=== PATIENT | female | born 1965 | race Caucasian/White ===

== ENCOUNTER 2020-03-23 00:19 | Observation (INO) | payer SELFPAY ==
[~2020-03-23] VITALS: Ht 157.5 cm; Wt 58.2 kg
--- NOTE | ~2020-03-23 | HEMODYNAMI ---
PATIENT:ELIZABETH DRUMMOND MEDICAL RECORD: [id number] : 67 LOCATION[facility] [facility] [id number] ADMISSION DATE: 03/23/20 Generatedon:03/23/20209:55 Patient name: ELIZABETH DRUMMOND Patient #: [id number] SSN: DO B: 1965 Date of study: 03/23/2020 Page: Of Hemodynamic Procedure Report Patient Data Patient Demographics Procedure consent was obtained First Name: ELIZABETH Gender: Female Last Name: HODA : 1965 Patient #: [id number] Age: 54 year(s) Race: Unknown Additional ID: [id number] Contact details Address: [address] [place] [address] State: [place] City: [facility] Zip code: [address] Admission Admission Data Admission Date: 03/23/2020 Admission Time: 1:50 Room #: D.2121 Lab Results Lab Result Date: 03/23/2020 Lab Result Time: 0:00 Biochemistry Name Units Result Min Max BUN mg/dl 17 --(---*)-- 7 18 Creatinine mg/dl 1 --(--*-)-- 0.6 1.3 CBC Name Units Result Min Max Hemoglobin g/dl 13.2 -*(----)-- 13.5 17.5 Procedure Procedure Types Cath Procedure Diagnostic Procedure [facility] w/Coronaries Sedation Charges Moderate Sedation up to 15 minutes PCI Procedure Coronary Stent Coronary Stent Initial Hemochron ACT Test Procedure Description Procedure Date Procedure Date: 03/23/2020 Procedure Start Time: 9:34 Procedure End Time: 9:49 Procedure Staff Name Function Stephon Quintanilla MD Performing Physician Amelia Randolph RT Scrub Marlene Driscoll RT Monitor Vipul Zapien RN Nurse Procedure Data Cath Procedure Fluoroscopy Diagnostic fluoroscopy Total fluoroscopy Time: 2.3 time: 2.3 min min Diagnostic fluoroscopy Total fluoroscopy dose: 208 dose: 208 mGy mGy Contrast Material Contrast Material Type Amount (ml) Isovue 300 73 Entry Location Entry Primary Successful Side Size Upsize Upsize Entry Closure Succes sful Closure Location (Fr) 1 (Fr) 2 (Fr) Remarks Device Remarks Femoral Right 5 Fr 6 Fr Exoseal artery Short Estimated blood loss: 5 ml Diagnostic catheters Device Type Used For End Catheter Placement MULTIPACK JL 4.0 5Fr Left Coronary catheter Angiography MULTIPACK 3DRC 5Fr Right Coronary catheter Angiography MULTIPACK Pigtail 5 Fr LV Angiography catheter Procedure Complications No complications Procedure Medications Medication Administration Route Dosage Oxygen etCO2 Nasal cannula 2 l/min Heparin Flush Bag added to field 2 bags (1000units/500ml NS) Lidocaine 2% added to field 20 0.9% NaCl I.V. 100 ml/hr Benadryl I.V. 50 mg Fentanyl I.V. 50 mcg Versed I.V. 1 mg Fentanyl I.V. 50 mcg Versed I.V. 1 mg Heparin Bolus I.V. 4000 units Integrilin (Bolus I.V. 5 ml 2mg/ml) Integrilin (Bolus wasted 5 ml 2mg/ml) Plavix P.O. 600 mg Hemodynamics Rest HGB: 13.2 (g/dl) Heart Rate: 61 (bpm) Pressure Samples Time Site Value (mmHg) Purpose Heart Use Rate(bpm) 9:37 LV 115/0,1 Snapshot 64 Gradients Valve Time Site Site Mean SEP/DFP Peak To Heart Use 1 2 (mmHg) (sec/min) Peak Rate (mmHg) (bpm) Aortic 9:38 LV AO 76 Snapshots Pre Cath Intra NCS Post Cath Vital Signs Time Heart Resp SPO2 etCO2 NIBP (mmHg) Rhythm Pain Sedation Rate (ipm) (%) (mmHg) Status Level (bpm) 9:23:21 61 16 100 21.8 127/78(108) NSR 0 (11) 10(A) , No pain 9:27:35 61 16 100 8.2 126/81(92) NSR 0 (11) 10(A) , No pain 9:31:47 67 16 100 15.8 111/73(88) NSR 0 (11) 9(A) , No pain 9:35:59 75 17 99 31.6 101/69(81) NSR 0 (11) 9(A) , No pain 9:40:03 73 16 99 32.4 110/76(91) NSR 0 (11) 9(A) , No pain 9:44:11 82 16 99 33.1 107/80(87) NSR 0 (11) 9(A) , No pain 9:48:22 73 16 100 32.4 102/58(86) NSR 0 (11) 9(A) , No pain Medications Time Medication Route Dose Verified Delivered Reason Notes Effectiveness by by 9:23:00 Oxygen etCO2 2 Stephon Clarkey Per physician Nasal l/min St Ruddy Zapien RN cannula 9:23:10 Heparin Flush added 2 Stephon Vipul used for Bag to bags St Ruddy Zapien RN procedure (1000units/500ml field VASQUEZ NS) 9:23:35 Lidocaine 2% added 20ml Stephon Matthew for local to vial St Ruddy Zapien RN anesthetic field VASQUEZ 9:23:44 0.9% NaCl I.V. 100 Stephon Clarkey Per physician ml/hr St Ruddy Zapien RN, MD 9:23:56 Benadryl I.V. 50 mg Stephon Matthew Per physician St Ruddy Zapien RN, MD 9:26:25 Fentanyl I.V. 50 Stephon Clarkey for sedation mcg St Ruddy Zapien RN, MD 9:26:31 Versed I.V. 1 mg Stephon Matthew for sedation St Ruddy Zapien RN, MD 9:34:15 Fentanyl I.V. 50 Stephon Clarkey for sedation mcg [facility] Ruddy Zapien RN, MD 9:34:20 Versed I.V. 1 mg Stephon Matthew for sedation St Ruddy Zapien RN, MD 9:40:31 Heparin Bolus I.V. 4000 Stephon Matthew for units St Ruddy Zapien RN anticoagulation 9:40:42 Integrilin I.V. 5 ml Stephon Matthew for (Bolus 2mg/ml) St Ruddy Zapien RN anticoagulation 9:40:45 Integrilin wasted 5 ml Stephon Matthew for (Bolus 2mg/ml) St Ruddy Zapien RN anticoagulation 9:51:08 Plavix P.O. 600 Stephon Matthew for mg St Ruddy Zapien RN antiplatelet therapy Procedure Log Time Note 8:59:38 Diagnostic Cath Status : Elective 9:02:01 Procedure Status Urgent Heart Cath (IP). 9:02:03 Marlene Driscoll RT(R) sent for patient. Start room use. 9:02:10 Time tracking: Regular hours (M-F 7:00 - 5:00) 9:02:15 Plan of Care:Hemodynamics will remain stable., Cardiac rhythm will remain stable., Comfort level will be maintained., Respiratory function will remain adequate., Patient/ family verbilizes understanding of procedure., Procedure tolerated without complication., Recovers from procedure without complications.. 9:22:19 Vital chart was started 9:23:00 Oxygen 2 l/min etCO2 Nasal cannula was administered by Vipul Zapien RN; Per physician; Verbal order read back and verified. 9:23:10 Heparin Flush Bag (1000units/500ml NS) 2 bags added to field was administered by Vipul Zapien RN; used for procedure; Verbal order read back and verified. 9:23:35 Lidocaine 2% 20ml vial added to field was administered by Vipul Zapien RN; for local anesthetic; Verbal order read back and verified. 9:23:44 0.9% NaCl 100 ml/hr I.V. was administered by Vipul Zapien RN; Per physician; Verbal order read back and verified. 9:23:56 Benadryl 50 mg I.V. was administered by Vipul Zapien RN; Per physician; Verbal order read back and verified. 9:24:39 Patient received from Mapiliary II to CCL 1 Alert and oriented. Tansferred to table in Supine position. 9:24:41 Signed procedure consent form obtained from patient. 9:24:42 Warm blankets applied, and rea hugger turned on for patient comfort. 9:24:43 Baseline sample Acquired. 9:24:43 Correct patient and procedure confirmed by team. 9:24:43 ECG and BP/O2 sat monitors applied to patient. 9:24:48 Rhythm: sinus rhythm 9:24:49 Full Disclosure recording started 9:24:54 H&P Date Dictated: 03/23/2020 New H&P dictated by physician.. 9:24:56 Pre-procedure instructions explained to patient. 9:24:56 Pre-op teaching completed and patient verbalized understanding. 9:24:58 Family unavailable. 9:25:00 Patient NPO since Midnight. 9:25:06 Is the patient allergic to Iodine/contrast media? No. 9:25:06 Was the patient premedicated? Yes 9:25:08 Is patient on blood thinner?No 9:25:09 Patient diabetic? No. 9:25:12 Previous problem with sedation/anesthesia? No ? 9:25:13 Snore? Yes 9:25:15 Sleep apnea? No 9:25:16 Deviated septum? No 9:25:17 Opens mouth fully? Yes 9:25:18 Sticks out tongue? Yes 9:25:19 Airway obstruction? No ? 9:25:22 Dentures? No ? 9:25:26 Pre procedure: right dorsailis pedis pulse 1+ Palpable, but thready & weak; easily obliterated 9:25:29 Pre procedure: left dorsailis pedis pulse 1+ Palpable, but thready & weak; easily obliterated 9:25:31 Patient pain scale 0/10 ?. 9:25:42 IV patent on arrival in right wrist with 0.9% NaCl at KVO. 9:25:47 Lab results completed and on chart. 9:25:53 Stress Test: no; N/A ? 9:25:57 Right groin area was prepped with chlora-prep and draped in sterile fashion 9:25:58 Alarms reviewed by R. N. 9:25:59 Sharps counted by scrub and verified by R.N. 9:26:01 Physician arrived 9:26:01 --------ALL STOP TIME OUT------ 9:26:02 Final Timeout: patient, procedure, and site verified with staff and physician. All members of the team are in agreement. 9:26:03 Right groin site verified by team. 9:26:06 Fire Safety Assessment: A--An alcohol-based skin anteseptic being used preoperatively., C--Open oxygen or nitrous oxide is being used., D--An ESU, laser, or fiber-optic light is being used. 9:26:10 Physical assessment completed. ASA score P 2 - A patient with mild systemic disease as per Stephon Quintanilla MD. 9:26:25 Fentanyl 50 mcg I.V. was administered by Vipul Zapien RN; for sedation; Verbal order read back and verified. 9:26:31 Versed 1 mg I.V. was administered by Vipul Zapien RN; for sedation; Verbal order read back and verified. 9:27:05 2) 60-89 Mildly reduced kidney function, and other findings (as for stage 1) point to kidney disease. 9:33:04 Maximum allowable contrast dose (3.7 X eGFR X 0.75)169 ml. 9:33:08 Sedation plan: IV Moderate Sedation Medication:Versed, Fentanyl 9:33:54 Use device set Femoral Dx 9:33:55 ACIST Syringe (03181) opened to sterile field. 9:33:55 Bag Decanter (2002S) opened to sterile field. 9:33:55 Medline Cath Pack ([id number]) opened to sterile field. 9:33:56 ACIST Hand Control (51728) opened to sterile field. 9:33:57 ACIST Manifold (05034) opened to sterile field. 9:33:57 DIAGNOSTIC Multipack 5Fr catheter set (HE2938) opened to sterile field. 9:33:58 Tegaderm 4 x 4 (1626W) opened to sterile field. 9:33:58 SHEATH 5FR Aurora (DEE099) opened to sterile field. 9:33:59 EMERALD Guide Wire (766-758) opened to sterile field. 9:34:03 Procedure started. 9:34:15 Fentanyl 50 mcg I.V. was administered by Vipul Zapien RN; for sedation; Verbal order read back and verified. 9:34:19 Local anesthetic to right femoral artery with Lidocaine 2% by Stephon Quintanilla MD.INITIAL ACCESS ONLY 9:34:20 Versed 1 mg I.V. was administered by Vipul Zapien RN; for sedation; Verbal order read back and verified. 9:34:33 A 5 Fr sheath was inserted into the Right Femoral artery 9:34:40 A MULTIPACK JL 4.0 5Fr catheter was advanced over the wire and used for Left Coronary Angiography. 9:35:02 LCA angiography performed. 9:35:09 Injector settings: Ml/sec: 3, Volume: 6, 9:35:13 Catheter removed. 9:35:22 A MULTIPACK 3DRC 5Fr catheter was advanced over the wire and used for Right Coronary Angiography. 9:35:38 RCA angiography performed. 9:35:41 Injector settings: Ml/sec: 3, Volume: 6, 9:36:43 ACCDominant side:Left 9:36:47 Catheter removed. 9:36:55 A MULTIPACK Pigtail 5 Fr catheter was advanced over the wire and used for LV Angiography. 9:37:34 Lab Result : Hemoglobin 13.2 g/dl 9:37:34 Lab Result : Creatinine 1 mg/dl 9:37:34 Lab Result : BUN 17 mg/dl 9:38:06 LV hemodynamics recorded. 9:38:19 EF : 55 % 9:38:21 LV gram done using TOMLINSON 9:38:24 Injector settings: Ml/sec: 5, Volume: 15, 9:39:28 GUIDE 6FR XBLAD 3.5 catheter ([id number]) opened to sterile field. 9:39:29 INFLATOR Merit BasixCompak (OW3265) opened to sterile field. 9:39:29 SHEATH 6FR Aurora (NKO031) opened to sterile field. 9:39:36 WHISPER 300cm guide wire ([id number]) opened to sterile field. 9:39:43 Catheter removed. 9:39:45 Proceeding to intervention. 9:39:56 Sheath upsized to a 6 Fr Short. 9:39:59 ACC Pre-intervention NGUYEN Flow is 3. 9:40:09 Pre PCI Site: [place] pCirc has 90% stenosis. 9:40:16 6 Fr xblad 3.5 guide catheter was inserted over the wire 9:40:31 Heparin Bolus 4000 units I.V. was administered by Vipul Zapien RN; for anticoagulation; Verbal order read back and verified. 9:40:42 Integrilin (Bolus 2mg/ml) 5 ml I.V. was administered by Vipul Zapien RN; for anticoagulation; Verbal order read back and verified. 9:40:45 Integrilin (Bolus 2mg/ml) 5 ml wasted was administered by Vipul Zapien RN; for anticoagulation; Verbal order read back and verified. 9:41:17 whisper wire advanced. 9:41:32 IV Extension Set opened to sterile field. 9:42:50 Wire advanced across lesion. 9:44:47 Place stent Inflation Number: 1 A KIMBERLEY OTW 3.5 x 15 stent ([id number]) was prepped and advanced across the Prox CX 90. The stent was deployed at 14 SUKUMAR for 0:30 (min:sec) 0. 9:45:06 Stent catheter was removed intact over wire. 9:45:06 Wire removed. 9:45:07 Guide catheter removed. 9:45:13 EXOSEAL 6Fr (EX600) opened to sterile field. 9:45:26 Sheath removed intact; hemostasis achieved with Exoseal to the Right Femoral artery. 9:45:28 Procedure ended.(Physican Out) 9:47:24 Fluoroscopy time 02.30 minutes. 9:47:28 Fluoroscopy dose: 208 mGy 9:47:28 Flurop Dose total: 208 9:47:34 Dose Area Product 9569 mGy/cm. 9:47:37 Contrast amount:Isovue 300 73ml. 9:47:39 Maximum allowable dose exceeded? No. 9:47:40 Sharps counted by scrub and verified by R.N. 9:47:42 Insertion/operative site no bleeding no hematoma. 9:47:45 Post-op/insertion site Right Femoral artery dressed using a 4 x 4 and Tegaderm. 9:47:47 Post Procedure Pulses reassessed and unchanged 9:47:50 Post procedure rhythm: unchanged. 9:47:54 Estimated blood loss: 5 ml 9:47:56 Post procedure instruction explained to patient.Patient verbalizes understanding. 9:47:57 Patient needs reinforcement of post procedure teaching. 9:48:57 Procedure type changed to Cath procedure, Diagnostic procedure, LHC, [facility] w/Coronaries, Sedation Charges, Moderate Sedation up to 15 minutes, PCI procedure, Coronary Stent, Coronary Stent Initial, Hemochron ACT Test 9:48:58 Procedure and supply charges have been captured, reviewed, submitted and are correct. 9:49:02 Procedure Complication : No complications 9:49:04 Vital chart was stopped 9:49:06 [facility] Findings: MVD- PCI performed (see procedure note) 9:49:08 Operative report dictated upon procedure completion. 9:49:08 See physician's report for complete and final results. 9:49:11 Report given to Med II. 9:49:14 Patient transfered to Med II with Stretcher. 9:49:16 Procedure ended. 9:49:16 Full Disclosure recording stopped 9:49:23 ACC-PCI Only Patient was given prescriptions, or instructed by Stephon Quintanilla MD to start/continue the following medications upon discharge: Plavix 9:49:29 ACT drawn and resulted at 237 seconds. (normal therapeutic range 180-240 seconds). 9:49:40 End room use (Document Last) 9:51:08 Plavix 600 mg P.O. was administered by Vipul Zapien RN; for antiplatelet therapy; Verbal order read back and verified. 9:51:53 ACC Post-intervention NGUYEN Flow is 3. 9:51:59 Post PCI Site: [place] pCirc has 0% stenosis. Intervention Summary Intervention Notes Time ActionType Lesion and Equipment Action# Pressure Duration Attributes Used 9:44:47 Place stent Prox CX KIMBERLEY OTW 3.5 1 14 00:30 x 15 stent ([id number]) Device Usage Item Name Manufacture Quantity Catalog Hospital Part Current Mini mal Lot# / Number Charge Number Stock Stock Serial# Code ACIST Syringe Acist 1 25171 972369 061923 285311 20 (03017) Medical Systems Inc Bag Decanter Microtek 1 2001S 698510 44987 597877 5 () Medical Inc. Medline Cath Medline 1 [id number] 662733 78255 175089 5 Pack ([id number]) ACIST Hand Acist 1 62478 243755 418305 389518 5 Control Medical (74542) Systems Inc ACIST Acist 1 78883 857906 881612 918797 5 Manifold Medical (70105) Systems Inc DIAGNOSTIC Cardinal 1 [id number] 781980 74623 310138 30 Multipack 5Fr Health catheter set (DD2685) Tegaderm 4 x 3M 1 1626W 631942 584492 736363 5 4 (1626W) SHEATH 5FR Terumo 1 CFA143 700355 362137 385991 5 Aurora (MCQ086) EMERALD Guide Cardinal 1 502-455 261418 224779 695555 5 Wire Health (502-455) MULTIPACK JL Cardinal 1 920875 5 4.0 5Fr Health catheter MULTIPACK Cardinal 1 460318 5 3DRC 5Fr Health catheter MULTIPACK Cardinal 1 697301 5 Pigtail 5 Fr Health catheter GUIDE 6FR Cardinal 1 [id number] 715356 092899 168320 10 XBLAD 3.5 Health catheter (75590044) INFLATOR Merit 1 NK8150 147788 172291 122044 15 orderbolt BasixCompak (LY5304) SHEATH 6FR Terumo 1 RID245 339745 330375 676396 40 Aurora (FYA638) WHISPER 300cm Graves 1 [id number] 410062 783817 883118 5 guide wire Vascular ([id number]) IV Extension Hospira 1 10937-12 092043 25571 526588 5 Set KIMBERLEY OTW 3.5 Medtronic 1 [id number] 066712 0599302 467502 5 [id number] x 15 stent ([id number]) EXOSEAL 6Fr Cardinal 1 EX600 502272 739633 402959 10 (EX600) Health Signature Audit Igo Stage Time Signature Unsigned Intra-Procedure 03/23/2020 Marlene Driscoll 9:52:16 AM RT(R) Intra-Procedure 03/23/2020 Vipul Zapien 9:55:08 AM RN Intra-Procedure 03/23/2020 Stephon Bravo 9:55:29 AM Ruddy VASQUEZ [facility] [address] [place] [address]
[2020-03-23 00:41] VITALS: BP 154/96
[2020-03-23 00:59] LABS: BASOPHILS 0.5 % (0-2); EOSINOPHILS 2.9 % (0-7); HEMOGLOBIN 13.2 g/dL (12-16); IMMATURE GRANULOCYTES 0.2 % (0-5); LYMPHOCYTES 31.8 % (15-50); MCHC 33.8 g/dL (31.0-37.0); MCV 91.5 fL (80.0-100.0); MEAN PLATELET VOLUME 9.8 fL (7.4-10.4); MONOCYTES 9.8 % (2-11); NEUTROPHILS 54.8 % (40-80); PLATELET COUNT 370 10x3/uL (130-400); RBC 4.26 10x6/uL (4.00-5.40); WBC 8.3 10x3/uL (4.8-10.8)
[2020-03-23 01:08] LABS: APTT 24.5 SECONDS (22.8-39.4); INR 0.88 (0.85-1.17)
[2020-03-23 01:09] LABS: CALC OSMOLALITY 272 mosm/kg (275-300); CALCIUM 9.1 mg/dL (8.5-10.1); CARBON DIOXIDE 28.6 mmol/L (21.0-32.0); CHLORIDE - SERUM 102 mmol/L (98-107); GLUCOSE 119 mg/dL (74-106); POTASSIUM - SERUM 4.5 mmol/L (3.5-5.1); SODIUM 135 mmol/L (136-145); UREA NITROGEN 17 mg/dL (7-18); eGFR NON AFRICAN AMERICAN 61 mL/min (90-120)
[2020-03-23 01:30] LABS: ALBUMIN 3.4 g/dL (3.4-5.0); ALKALINE PHOSPHATASE 61 U/L (30-120); ALT (SGPT) 18 U/L (10-68); BILIRUBIN - TOTAL 0.28 mg/dL (0.2-1.3); CKMB 1.3 U/L (0.0-3.6); CREATINE KINASE 166 UL (21-215); MAGNESIUM - SERUM 2.2 mg/dL (1.8-2.4); PROTEIN - SERUM 7.3 g/dL (6.4-8.2)
[2020-03-23 01:33] LABS: TROPONIN-I 0.073 ng/mL (0.000-0.060)
--- NOTE | 2020-03-23 01:33 | NUR ---
CRITICAL LAB TROPONIN RECEIVED AT THIS TIME FROM KIRAN IN THE LAB. CRITICAL LAB SHEET COMPLETED AND EDP NOTIFIED.
[2020-03-23 02:57] VITALS: BP 117/78; Ht 157.5 cm; Wt 58.2 kg
[2020-03-23 09:00] LABS: BASOPHILS 0.5 % (0-2); EOSINOPHILS 3.2 % (0-7); HEMATOCRIT 40.7 % (36.0-48.0); HEMOGLOBIN 13.9 g/dL (12-16); IMMATURE GRANULOCYTES 0.1 % (0-5); LYMPHOCYTES 37.3 % (15-50); MCH 31.1 pg (26.0-34.0); MCHC 34.2 g/dL (31.0-37.0); MCV 91.1 fL (80.0-100.0); MEAN PLATELET VOLUME 8.9 fL (7.4-10.4); MONOCYTES 8.1 % (2-11); NEUTROPHILS 50.8 % (40-80); PLATELET COUNT 326 10x3/uL (130-400); RBC 4.47 10x6/uL (4.00-5.40); WBC 8.5 10x3/uL (4.8-10.8)
[2020-03-23 09:31] LABS: ANION GAP 12.1 mmol/L (8-16); CALCIUM 9.1 mg/dL (8.5-10.1); CHOL - HDL RATIO 3.7 ratio (2.3-4.1); LDL-HDL RATIO 2.3 ratio (1.5-3.5); POTASSIUM - SERUM 4.1 mmol/L (3.5-5.1)
[2020-03-23 09:33] LABS: TROPONIN-I 0.122 ng/mL (0.000-0.060)
[2020-03-23 10:01] VITALS: BP 115/72
--- NOTE | 2020-03-23 10:15 | NUR ---
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 PT IS AAO AND WILL BE SUPINE FOR 4 HOURS. R.FEM CATH SITE IS C/D/I WITH NO S/S OF HEMATOMA PRESENT. PERIPHERAL PULSES BILATERALLY EVEN AND STRONG. NO S/S OF DISTRESS NOTED. WILL CTM.
--- NOTE | 2020-03-23 11:59 | NUR ---
ENTERED THE ROOM TO FIND THE PATIENT IN SEMI FOWLERS POSITION. SHE STATED THAT SHE HAD GOTTEN UP TO GO TO THE BATHROOM. I HAD PREVIOUSLY PROVIDED THE PATIENT WITH EDUCATION ABOUT THE IMPORTANCE OF LYING SUPINE AFTER A HEART CATH BUT SHE STATED THAT SHE DID NOT RECALL. I RESTRESSED THE IMPORTANCE OF LYING SUPINE FOR THE NEXT TWO HOURS. PT VERBALIZED UNDERSTANDING AND APOLOGIZED FOR NOT REMEMBERING THAT I HAD PROVIDED HER WITH SUCH INSTRUCTION. POSITIONED PT FLAT IN BED. CHECKED RIGHT FEMORAL SITE AND FOUND NO HEMATOMA PRESENT. PERIPHERAL PULSES BILATERALLY EVEN AND STRONG. WILL CTM.
[2020-03-23] MEDS ORDERED: PLAVIX75 MG PO (13:07)
[2020-03-23] MEDS ORDERED: LOW DOSE ASPIRI81 M1 PO (13:08)
[2020-03-23] MEDS ORDERED: LIPITOR20 MG PO (13:08)
[2020-03-23 13:38] VITALS: BP 102/63
--- NOTE | 2020-03-23 14:33 | NUR ---
PT DISCHARGED HOME VIA WHEELCHAIR WITH FAMILY. PIV REMOVED WITH CATHETER TIP FULLY INTACT. PT SIGNED PROPER DISCHARGE INSTRUCTIONS AND REMOVED ALL VALUABLES FROM THE ROOM. TELEMETRY REMOVED AND RETURNED.
--- NOTE | 2020-03-26 08:20 | OP ---
PATIENT NAME: ELIZABETH DRUMMOND MEDICAL RECORD: [id number] :67 LOCATION:D.M2 D.2121 ADMISSION DATE:03/23/20 SURGEON: MIO SINGLETON MD DATE OF OPERATION: 03/23/2020 PROCEDURE: Left heart catheterization, selective coronary angiography, right femoral artery approach. CATHETERS: A 5-[place] sheath, 5/4 left and right Carri, 5/4 pig. The procedure was well tolerated. The patient returned to the julien after sheath removed. ExoSeal device was placed. FINDINGS: Left ventriculography in 30 degree TOMLINSON view, normal wall motion, normal systolic function. CORONARY ANATOMY: LEFT MAIN: Left main is free of disease. LAD: Free of disease in the diagonal system. CIRCUMFLEX: Has a tight elongated stenosis of better than 90%, this is a left dominant system. RIGHT CORONARY ARTERY: Rudimentary, free of disease. IMPRESSION: Single-vessel disease with acute coronary syndrome involving circumflex. PLAN: Intervention momentarily. DESCRIPTION OF PROCEDURE: A 5-[place] sheath was exchanged for a 6-[place] sheath. A JL4 guiding catheter provided excellent guide catheter support followed by 300 cm Whisper wire placed across the tightly occluded circumflex down the distal portion of the vessel. Stent deployed with 3.5 x 15 mm [place] drug-eluting stent up to 14 atmospheres for 45 seconds. Final angiography shows excellent resolution of 90% stenosis, no significant residual. NGUYEN flow was 3 throughout the procedure. Sheath closed with ExoSeal device. Plavix was loaded in the lab. Lipitor will be started as an outpatient as well. TRANSINT:[id number] Voice Confirmation ID: [id number] DOCUMENT ID: [id number] MIO SINGLETON MD at 0820 CC: [id number] DICTATION DATE: 03/23/20 1002 BEV[address] MILL OPERATOR: 03/23/20 1741 DIS IN 03/23/20 [id number] [place] [address]
--- NOTE | 2020-03-26 08:20 | CN ---
PATIENT NAME:ELIZABETH DRUMMOND MEDICAL RECORD: [id number] : 67 LOCATION:D. D.2121 ADMIT DATE: 03/23/20 ACCOUNT: [id number] CONSULTING PHYSICIAN: MIO SINGLETON MD REFERRING PHYSICIAN: NETO SALMERON MD DATE OF CONSULTATION: 03/23/2020 HISTORY OF PRESENT ILLNESS: A 54-year-old female with no known history of coronary artery disease, has a history of dyslipidemia, on dietary therapy, never on pharmaceutical, history of ongoing tobacco use, smoking a pack a day, presents with angina, acute coronary syndrome. She has pressure radiating to the jaw, elevated cardiac enzymes. We are asked to see her concerning her cardiovascular status. PAST MEDICAL HISTORY: Includes history of mild dyslipidemia. MEDICATIONS: None chronically. ALLERGIES: None known. 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 No set exercise program. Smokes about a pack a day. No illicit drugs. REVIEW OF SYSTEMS: The patient reports easy bruising but reports no swollen glands. The patient reports no fever, no night sweats, no significant weight gain, no significant weight loss. No significant exercise tolerance. The patient reports no dry eyes, no irritation, no vision change. Patient reports no difficulty hearing and no ear pain. Patient reports no frequent nose bleeds or nose and sinus problems. Patient reports on arm pain on exertion. No shortness of breath while lying down. No history of heart murmur. Patient reports no cough, no wheezing or coughing up blood. Patient reports no abdominal pain, no vomiting. Normal appetite. No diarrhea and not vomiting blood. No nausea and no constipation. Patient reports no incontinence. No difficulty urinating. No hematuria. No increased frequency. Patient reports no muscle aches. No weakness, no arthralgias, no back pain. No swelling of the extremities. Patient reports no abnormal mole, no jaundice, no rashes. Reports no loss of consciousness. No weakness and no numbness. No seizures, dizziness, or headaches. The patient reports no depression, no sleep disturbance, feeling safe in a relationship and no alcohol abuse. Patient reports on fatigue. Reports no runny nose or sinus pressure. No itching, no hives, and no frequent sneezing. PHYSICAL EXAMINATION: GENERAL: Pleasant female in no acute distress, appears stated age. VITAL SIGNS: Blood pressure 117/78, pulse 81 and regular. HEENT: Normocephalic, atraumatic. NECK: No bruits noted. HEART: Regular, II/ systolic ejection murmur. LUNGS: Good air excursion. ABDOMEN: Soft, nontender. EXTREMITIES: Pulses 2+. No edema. DIAGNOSTIC DATA: EKG shows anterior T-wave changes. IMPRESSION: Acute coronary syndrome. CONSULT REPORT [id number] ELIZABETH DRUMMOND PLAN: For angiography, intervention based on the above. TRANSINT:[id number] Voice Confirmation ID: [id number] DOCUMENT ID: [id number] MIO SINGLETON MD at 0820 CC: [id number] DICTATION DATE: 03/23/20 0852 STAFF ATTORNEY: 03/23/20 1347 DIS IN 03/23/20 [id number] [place] [address]
== END 2020-03-23 14:34 | disposition home or self-care (01) ==
LOC: D.ER 00:19 → D.M2 01:50 → OBSVTIME 01:50 → D.M2 01:50
PROVIDERS: Family Medicine; Internal Medicine Interventional Cardiology; ADMIT Emergency Medicine; ATTEND Emergency Medicine
DX: I25.119 Atherosclerotic heart disease of native coronary artery with unspecified angina pectoris (principal); I21.4 Non-ST elevation (NSTEMI) myocardial infarction; E87.1 Hypo-osmolality and hyponatremia; E78.5 Hyperlipidemia, unspecified; F17.203 Nicotine dependence unspecified, with withdrawal; U07.1 COVID-19; R07.9 Chest pain, unspecified